=== PATIENT | male | born 1965 | race Asian ===

== ENCOUNTER 2019-11-16 04:05 | Emergency (ER) | payer MEDICARE ==
[~2019-11-16] VITALS: Ht 152.4 cm; Wt 69.8 kg
--- NOTE | 2019-11-16 06:10 | PHYS DOC ---
Past Medical History Past Medical History: No Pertinent History Past Surgical History: Appendectomy Smoking Status: Never Smoker Alcohol Use: Occasionally Adult General Chief Complaint Chief Complaint: BLOODY STOOL HPI HPI 54-year-old male who presents for evaluation of diffuse abdominal pain, worsening over the last 1.5 weeks. Associated with loose bowel movements, as well as melenic stools. Prior appendectomy, but no other abdominal surgeries. His only home medication is Aleve for joint pain; denying overuse of medication. No aggravating or alleviating factors. No hematochezia. Review of Systems Review of Systems General: No fevers, chills. Eyes: No blurred vision, diplopia. ENT: No nasal congestion, sore throat. CV: No chest pain, edema. Resp: No shortness of breath, cough. GI: No nausea, vomiting, hematochezia. Reports abdominal pain, melena. : No dysuria, hematuria. Neuro: No headache, dizziness, weakness. MSK: No myalgia, arthralgia, back pain. Skin: No acute rash, lesion. All other systems were reviewed and found to be within normal limits, except as documented in this note. Current Medications Current Medications Current Medications Medications (Trade) Dose Ordered Sig/Kristal Start Time Stop Time Status Last Admin Dose Admin Iohexol (Omnipaque 300 Mg/ml) 75 ml 1X ONCE 11/16/19 07:00 11/16/19 07:04 DC 11/16/19 07:00 75 ML Pantoprazole Sodium (PROTONIX VIAL for IV PUSH) 80 mg 1X ONCE 11/16/19 06:30 11/16/19 06:31 DC 11/16/19 06:44 80 MG Allergies Allergies Allergies Coded Allergies Type Severity Reaction Last Updated Verified No Known Drug Allergies 11/16/19 No Physical Exam Physical Exam Gen: NAD. Head: NC/AT Eyes: No scleral icterus. No conjunctival injection. ENT: MMM. Posterior OP clear. Neck: Supple. NT. CV: RRR. Peripheral pulses intact. Resp: CTAB. Abd: Soft. Mild diffuse distention. Minimal diffuse tenderness. No rebound, guarding, rigidity. No flank percussion tenderness. MSK: No peripheral cyanosis. No edema. Neuro: Awake & alert. Skin: Warm. Dry. Psych: Appropriate mood & affect. Current Patient Data Vital Signs Vital Signs Date Time Temp Pulse Resp B/P (MAP) Pulse Ox O2 Delivery O2 Flow Rate FiO2 11/16/19 04:36 97.9 82 16 135/96 (109) 94 Room Air 97.9 Lab Values Laboratory Tests Test 11/16/19 05:50 White Blood Count 5.5 x10^3/uL (4.0-11.0) Red Blood Count 5.09 x10^6/uL (4.30-5.70) Hemoglobin 14.7 g/dL (13.0-17.5) Hematocrit 44.4 % (39.0-53.0) Mean Corpuscular Volume 87 fL (79-100) Mean Corpuscular Hemoglobin 29 pg (25-35) Mean Corpuscular Hemoglobin Concent 33 g/dL (31-37) Red Cell Distribution Width 12.6 % (11.5-14.5) Platelet Count 196 x10^3/uL (140-400) Neutrophils (%) (Auto) 59 % (31-73) Lymphocytes (%) (Auto) 28 % (24-48) Monocytes (%) (Auto) 12 % (0-9) H Eosinophils (%) (Auto) 1 % (0-3) Basophils (%) (Auto) 0 % (0-3) Neutrophils # (Auto) 3.3 x10^3/uL (1.8-7.7) Lymphocytes # (Auto) 1.5 x10^3/uL (1.0-4.8) Monocytes # (Auto) 0.7 x10^3/uL (0.0-1.1) Eosinophils # (Auto) 0.1 x10^3/uL (0.0-0.7) Basophils # (Auto) 0.0 x10^3/uL (0.0-0.2) Prothrombin Time 12.3 SEC (11.7-14.0) Prothrombin Time INR 1.0 (0.8-1.1) Activated Partial Thromboplast Time 34 SEC (24-38) Sodium Level 142 mmol/L (136-145) Potassium Level 4.0 mmol/L (3.5-5.1) Chloride Level 104 mmol/L (98-107) Carbon Dioxide Level 25 mmol/L (21-32) Anion Gap 13 (6-14) Blood Urea Nitrogen 12 mg/dL (8-26) Creatinine 0.7 mg/dL (0.7-1.3) Estimated GFR (Cockcroft-Gault) 118.0 BUN/Creatinine Ratio 17 (6-20) Glucose Level 127 mg/dL (70-99) H Calcium Level 9.4 mg/dL (8.5-10.1) Magnesium Level 2.2 mg/dL (1.8-2.4) Total Bilirubin 1.7 mg/dL (0.2-1.0) H Aspartate Amino Transferase (AST) 31 U/L (15-37) Alanine Aminotransferase (ALT) 62 U/L (16-63) Alkaline Phosphatase 100 U/L (46-116) Total Protein 7.4 g/dL (6.4-8.2) Albumin 4.0 g/dL (3.4-5.0) Albumin/Globulin Ratio 1.2 (1.0-1.7) Lipase 87 U/L (73-393) Laboratory Tests 11/16/19 05:50 Laboratory Tests 11/16/19 05:50 EKG EKG [] Radiology/Procedures Radiology/Procedures [] Course & Med Decision Making Course & Med Decision Making Pertinent Labs and Imaging studies reviewed. (See chart for details) In summary, 54-year-old male on no anticoagulation, who presents for evaluation of some diffuse abdominal pain over the last couple weeks or so, as well as some dark-colored stool. Hemodynamically stable. Labwork is otherwise unrevealing including normal hemoglobin and BUN/creatinine ratio. CT abdomen/pelvis fails to reveal any acute process. Received empiric Protonix bolus. He otherwise remains well-appearing and nontoxic. No emergent pathology was identified. Possibility of gastritis. We discharged home with outpatient PMD follow-up. Rx for protonix and zofran. Return precautions given. Dragon Disclaimer Dragon Disclaimer This electronic medical record was generated, in whole or in part, using a voice recognition dictation system. Departure Departure Impression: Primary Impression: Abdominal pain Additional Impression: Melena Disposition: HOME, SELF-CARE Referrals: NO PCP (PCP) Scripts Ondansetron Hcl (ZOFRAN) 4 Mg Tablet 1 TAB PO PRN Q6-8HRS for nausea, #12 TAB Prov: LE,NATHAN H DO 11/16/19 Pantoprazole Sodium (PROTONIX ) 40 Mg Tablet.dr 40 MG PO DAILYAC for GERD for 30 Days, #30 TAB Prov: NATHAN MCDONALD DO 11/16/19 Problem Qualifiers Primary Impression: Abdominal pain Abdominal location: epigastric Qualified Codes: R10.13 - Epigastric pain NATHAN MCDONALD DO Nov 16, 2019 06:10
[2019-11-16] MEDS ORDERED: PANTOPRAZOLE IV PUSH 40 MG VIAL. IVP ONE (06:30)
[2019-11-16 06:32] LABS: BASO % 0 % (0-3); EOS # 0.1 x10^3/uL (0.0-0.7); EOS % 1 % (0-3); HEMATOCRIT 44.4 % (39.0-53.0); HEMOGLOBIN 14.7 g/dL (13.0-17.5); LYMPH # 1.5 x10^3/uL (1.0-4.8); LYMPH % 28 % (24-48); MEAN CORPUSCULAR HEMOGLOBIN 29 pg (25-35); MEAN CORPUSCULAR HGB CONC 33 g/dL (31-37); MEAN CORPUSCULAR VOLUME 87 fL (79-100); MONO # 0.7 x10^3/uL (0.0-1.1); MONO % 12 % (0-9); NEUT # 3.3 x10^3/uL (1.8-7.7); NEUT % 59 % (31-73); PLATELET COUNT 196 x10^3/uL (140-400); RED BLOOD COUNT 5.09 x10^6/uL (4.30-5.70); RED CELL DISTRIBUTION WIDTH 12.6 % (11.5-14.5); WHITE BLOOD COUNT 5.5 x10^3/uL (4.0-11.0)
[2019-11-16 06:44] LABS: PROTHROMBIN TIME PATIENT 12.3 SEC (11.7-14.0)
[2019-11-16 06:52] LABS: CALCIUM 9.4 mg/dL (8.5-10.1); CREATININE 0.7 mg/dL (0.7-1.3)
[2019-11-16 06:57] LABS: ALBUMIN/GLOBULIN RATIO 1.2 (1.0-1.7); MAGNESIUM 2.2 mg/dL (1.8-2.4); TOTAL BILIRUBIN 1.7 mg/dL (0.2-1.0); TOTAL PROTEIN 7.4 g/dL (6.4-8.2)
[2019-11-16] MEDS ORDERED: IOHEXOL 300 MG/ML 100ML VIAL. IV ONE (07:00)
--- NOTE | 2019-11-16 07:47 | RAD ---
CT abdomen and pelvis with contrast PQRS statement: CT scans at this facility use dose reduction including either automated exposure control, iterative reconstructions, and /or weight based radiation dosing via mA and kV modification when appropriate to reduce radiation dose to as low as reasonably achievable. HISTORY: Diffuse abdominal pain and hematochezia Contrast: 75 mL Omnipaque 300 intravenous contrast. Abdomen findings: Liver, gallbladder, spleen, pancreas, adrenal glands and kidneys are unremarkable. Subcentimeter hypodensity right renal midpole cortex too small to characterize due to volume averaging statistically most likely small cyst. Appendectomy. No obstruction or inflammatory changes in GI tract. No abdominal fluid or adenopathy. Calcified plaque abdominal aorta. Lung bases and bones are unremarkable. Pelvis findings: Bladder, prostate, rectum and bones are unremarkable. IMPRESSION: No acute process. The appendix is negative. Electronically signed by: Shar Caceres MD (11/16/2019 7:44 AM) [id number]
[2019-11-16] MEDS ORDERED: PANT40TA77 PO (07:53)
[2019-11-16] MEDS ORDERED: ONDA4TAB7 PO (07:53)
[2019-11-16 08:30] VITALS: BP 109/66
[2019-11-16] MEDS ORDERED: IOHEXOL 300 MG/ML 100ML VIAL. ONE (11:42)
== END 2019-11-16 08:42 | disposition home or self-care (01) ==
LOC: ER 04:05
DX: R10.13 Epigastric pain (principal); K92.1 Melena; R10.84 Generalized abdominal pain; Z90.89 Acquired absence of other organs
CPT/HCPCS: 36415; 74177; 80053; 83690; 83735; 85025; 85610; 85730; 86850; 86900; 86901; 96374; 99285; C9113; Q9967

== ENCOUNTER 2021-02-23 09:24 | Emergency (ER) | payer MEDICARE ==
[~2021-02-23] VITALS: Ht 152.4 cm; Wt 70.1 kg
[~2021-02-23 09:24] MED LIST: ONDA4TAB7 PO; PANT40TA77 PO
[2021-02-23] MEDS ORDERED: hydrOXYzine 25 MG TABLET PO STA (11:10)
[2021-02-23] MEDS ORDERED: FAMOTIDINE 20 MG TABLET. PO ONE (11:15)
[2021-02-23] MEDS ORDERED: predniSONE 20 MG TABLET PO ONE (11:15)
[2021-02-23] MEDS ORDERED: FAMO20TA5 PO (11:30)
[2021-02-23] MEDS ORDERED: TRIA80OI TP (11:30)
[2021-02-23] MEDS ORDERED: HYDR25TA PO (11:30)
[2021-02-23] MEDS ORDERED: PRED-220 PO (11:30)
--- NOTE | 2021-02-23 11:31 | PHYS DOC ---
Past Medical History Past Medical History: No Pertinent History Past Surgical History: No Surgical History, Appendectomy Smoking Status: Never Smoker Alcohol Use: None General Adult EDM: Chief Complaint: ITCHING HPI: HPI: Patient is a 55 year old man with no significant medical history presenting to the ED today complaining of a rash that began yesterday. Patient states the rash is pruritic. Patient states he was out doing yard work the day before yesterday. Denies any fever. Denies any difficulty breathing, throat or tongue swelling. Daughter interpreted for her [place] per patient request Review of Systems: Review of Systems: Constitutional: Denies fever or chills. [] GI: Denies abdominal pain, nausea, vomiting, bloody stools or diarrhea. [] : Denies dysuria. [] Musculoskeletal: Denies back pain or joint pain. [] Integument: reports rash Neurologic: Denies headache, focal weakness or sensory changes. [] Psychiatric: Denies depression or anxiety. [] Heart Score: C/O Chest Pain: N/A Risk Factors: Risk Factors: DM, Current or recent (<one month) smoker, HTN, HLP, family history of CAD, obesity. Risk Scores: Score 0 - 3: 2.5% MACE over next 6 weeks - Discharge Home Score 4 - 6: 20.3% MACE over next 6 weeks - Admit for Clinical Observation Score 7 - 10: 72.7% MACE over next 6 weeks - Early Invasive Strategies Current Medications: Current Medications Medications (Trade) Dose Ordered Sig/Kristal Start Time Stop Time Status Last Admin Dose Admin Famotidine (Pepcid) 20 mg 1X ONCE 02/23/21 11:15 02/23/21 11:16 DC Hydroxyzine HCl (Atarax) 25 mg 1X STAT 02/23/21 11:10 02/23/21 11:14 DC Prednisone (Prednisone) 60 mg 1X ONCE 02/23/21 11:15 02/23/21 11:16 DC Allergies: Allergies: Allergies Coded Allergies Type Severity Reaction Last Updated Verified No Known Drug Allergies 02/23/21 No Physical Exam: PE: Constitutional: Well developed, well nourished, no acute distress, non-toxic appearance. [] Skin: Mild erythematous rash on patient's abdomen, upper chest, back, bilateral thighs. Back: No tenderness, no CVA tenderness. [] Extremities: No tenderness, no cyanosis, no clubbing, ROM intact, no edema. [] Neurologic: Alert and oriented X 3, normal motor function, normal sensory function, no focal deficits noted. [] Psychologic: Affect normal, judgement normal, mood normal. [] Current Patient Data: Vital Signs: Vital Signs Date Time Temp Pulse Resp B/P (MAP) Pulse Ox O2 Delivery O2 Flow Rate FiO2 02/23/21 09:50 98.9 83 16 150/95 (113) 97 Room Air 98.9 EKG: EKG: [] Radiology/Procedures: Radiology/Procedures: [] Course & Med Decision Making: Course & Med Decision Making Pertinent Labs and Imaging studies reviewed. (See chart for details) This is a 55-year-old male patient presented to the ED today with a rash on the abdomen, upper back, chest, bilateral thighs, rash began yesterday. He reports being outside doing yard work day before yesterday. Discharged home, follow-up with PCP. Prescriptions provided Bina Disclaimer: Bina Disclaimer: This electronic medical record was generated, in whole or in part, using a voice recognition dictation system. Departure Departure Impression: Primary Impression: Rash Disposition: HOME / SELF CARE / HOMELESS Condition: STABLE Referrals: NO PCP (PCP) follow up with your doctor in 1-2 weeks Patient Instructions: Rash Additional Instructions: You have a rash, use the prescribed medications as ordered. Follow-up with your doctor in 1 to 2 weeks Scripts Triamcinolone Acetonide (TRIAMCINOLONE ACETONIDE) 80 Gm Oint...g. 1 JAMES TP BID, #30 GM 1 Refill Prov: SAURABH MODI OFFICE CLERK 02/23/21 Hydroxyzine Hcl (HYDROXYZINE HCL) 25 Mg Tablet 1 TAB PO TID, #90 TAB 2 Refills Prov: SAURABH MODI OFFICE CLERK 02/23/21 Famotidine (FAMOTIDINE) 20 Mg Tablet 20 MG PO DAILY, #7 TAB Prov: SAURABH MODI OFFICE CLERK 02/23/21 Prednisone (PREDNISONE ) 10 Mg Tablet 10 MG PO UD for PREDNISONE TAPER, #39 TAB 0 Refills Take 3 tablets by mouth twice a day for 3 days, then take 2 tablets by mouth twice a day for 3 days, then take 1 tablet by mouth twice a day for 3 days, then take 1 tablet by mouth daily x 3 days, then stop. Prov: SAURABH MODI APRN 02/23/21 SAURABH MODI APRN Feb 23, 2021 11:31
[2021-02-23 11:47] VITALS: BP 136/95
== END 2021-02-23 11:45 | disposition home or self-care (01) ==
LOC: ER 09:24
DX: R21 Rash and other nonspecific skin eruption (principal); L29.8 Other pruritus
CPT/HCPCS: 99284; J7512

== ENCOUNTER 2021-10-17 22:07 | Emergency (ER) | payer MEDICARE ==
[~2021-10-17] VITALS: Ht 152.4 cm; Wt 70.0 kg
[~2021-10-17 22:07] MED LIST changes: +FAMO20TA5 PO; +HYDR25TA PO; +PRED-220 PO; +TRIA80OI TP
[2021-10-18 00:36] LABS: BILIRUBIN,URINE SMALL (NEG); CLARITY,URINE TURBID; COLOR,URINE ORANGE; PROTEIN,URINE 100 mg/dL (NEG-TRACE)
[2021-10-18 00:53] LABS: BACTERIA,URINE 0 /HPF (0-FEW); NITRITE,URINE NEGATIVE (NEG); RBC,URINE OCC /HPF (0-2); WBC,URINE OCC /HPF (0-4)
[2021-10-18] MEDS ORDERED: ONDANSETRON PF 4 MG/2 ML VIAL. IVP ONE (01:30)
[2021-10-18] MEDS ORDERED: IV NORMAL SALINE 1000ML BAG 1,000 ML IV ONE ×2 (01:30)
[2021-10-18] MEDS ORDERED: FAMOTIDINE 20 MG/2 ML VIAL IVP ONE (01:30)
--- NOTE | 2021-10-18 02:41 | PHYS DOC ---
Past Medical History Past Medical History: No Pertinent History Additional Past Medical Histor: PREDIABITES Past Surgical History: Appendectomy Smoking Status: Never Smoker Alcohol Use: None General Adult EDM: Chief Complaint: ABDOMINAL PAIN HPI: HPI: 56-year-old male with no significant past medical history presents the ED with his daughter who is translating (speaks Hmong, declines general ledger bookkeeper services), presents to the ed with c/o multiple episodes of vomiting and diarrhea that started this afternoon with associated left-sided upper and lower abdominal pain and subjective fever and chills. Was at a family get together last evening and did drink alcohol but was only "tipsy." No other family members are sick. Patient takes no routine medications. Review of Systems: Review of Systems: Constitutional: Denies fever or chills. [] Eyes: Denies change in visual acuity. [] HENT: Denies nasal congestion or sore throat. [] Respiratory: Denies cough or shortness of breath. [] Cardiovascular: Denies chest pain or edema. [] GI: Denies hematochezia, bloody stools or diarrhea. [] Musculoskeletal: Denies back pain or joint pain. [] Integument: Denies rash or diaphoresis Neurologic: Denies headache, focal weakness or sensory changes. [] Endocrine: Denies polyuria or polydipsia. [] Lymphatic: Denies swollen glands. [] Psychiatric: Denies depression or anxiety. [] Heart Score: C/O Chest Pain: No Risk Factors: Risk Factors: DM, Current or recent (<one month) smoker, HTN, HLP, family history of CAD, obesity. Risk Scores: Score 0 - 3: 2.5% MACE over next 6 weeks - Discharge Home Score 4 - 6: 20.3% MACE over next 6 weeks - Admit for Clinical Observation Score 7 - 10: 72.7% MACE over next 6 weeks - Early Invasive Strategies Current Medications: Current Medications Medications (Trade) Dose Ordered Sig/Kristal Start Time Stop Time Status Last Admin Dose Admin Famotidine (Pepcid Vial) 20 mg 1X ONCE 10/18/21 01:30 10/18/21 01:32 DC Ondansetron HCl (Zofran) 4 mg 1X ONCE 10/18/21 01:30 10/18/21 01:32 DC Sodium Chloride 1,000 ml @ 1,000 mls/hr 1X ONCE 10/18/21 01:30 10/18/21 02:29 DC Allergies: Allergies: Allergies Coded Allergies Type Severity Reaction Last Updated Verified No Known Drug Allergies 10/17/21 No Physical Exam: PE: Constitutional: no acute distress, non-toxic appearance. HENT: Normocephalic, atraumatic, very dry mucous membranes Eyes: EOMI, conjunctiva normal, no discharge. Neck: Normal range of motion, supple, Cardiovascular: S1/2 present, tachycardic Lungs & Thorax: Speaking in full sentences, bilateral equal chest rise, no tachypnea or increased work of breathing Abdomen: soft, reports tenderness in left lower quadrant left upper quadrant and epigastric region, no McBurney's point tenderness, no Yuan sign, no rigidity or guarding, no distention Skin: Warm, dry, no erythema, no rash. [] Extremities: No tenderness, no cyanosis, no lower extremity edema Neurologic: Alert and oriented X 3, normal motor function, normal sensory function, no focal deficits noted. [] Psychologic: Affect normal, judgement normal, mood normal. [] Current Patient Data: Labs: Laboratory Tests Test 10/18/21 00:01 Urine Collection Type Unknown Urine Color Scurry Urine Clarity Turbid Urine pH 6.0 (<5.0-8.0) Urine Specific Gwynn >=1.030 (1.000-1.030) Urine Protein 100 mg/dL (NEG-TRACE) Urine Glucose (UA) 100 mg/dL (NEG) Urine Ketones (Stick) 15 mg/dL (NEG) Urine Blood Negative (NEG) Urine Nitrite Negative (NEG) Urine Bilirubin Small (NEG) Urine Urobilinogen Dipstick 1.0 mg/dL (0.2 mg/dL) Urine Leukocyte Esterase Small (NEG) Urine RBC Occ /HPF (0-2) Urine WBC Occ /HPF (0-4) Urine Squamous Epithelial Cells Few /LPF Urine Bacteria 0 /HPF (0-FEW) Urine Mucus Mod /LPF Vital Signs: Vital Signs Date Time Temp Pulse Resp B/P (MAP) Pulse Ox O2 Delivery O2 Flow Rate FiO2 10/18/21 00:54 107 16 130/79 (96) 98 Room Air 10/17/21 22:35 98.3 98.3 EKG: EKG: States admitted for beats per minute, no axis deviation, Q waves lead III, normal intervals, no T wave inversion, no ST elevation or ST depression, patient with no active chest pain pressure Radiology/Procedures: Radiology/Procedures: IMAGING REPORT Signed PATIENT: CLAIRE GAYLE ACCOUNT: [id number] : 1965 LOCATION: ER AGE: 56 SEX: M EXAM STATUS: REG ER ORD. PHYSICIAN: MARY ELLEN HOBBS DO REASON: left sided abd pain;OMNI 300, 75ML PROCEDURE: CT ABD PELV W/ IV CONTRST ONLY PQRS Compliance Statement: One or more of the following individualized dose reduction techniques were utilized for this examination: 1. Automated exposure control 2. Adjustment of the mA and/or kV according to patient size 3. Use of iterative reconstruction technique CT abdomen/pelvis with contrast 10/18/2021 3:24 AM INDICATION: Left-sided abdominal pain COMPARISON: None available TECHNIQUE: Multiple axial CT images of the abdomen and pelvis were obtained after the intravenous administration of 75 mL Omnipaque 300. Coronal and sagittal reformats are provided. FINDINGS: Respiratory motion limits evaluation of the lung bases. Heart size is within normal limits. Liver, spleen, adrenal glands, pancreas and gallbladder are normal in appearance. The abdominal aorta is normal in course and caliber. There are no pathologically enlarged lymph nodes in the abdomen and pelvis. There is no abdominal free fluid. There is no free intraperitoneal air. Small and large bowel are normal in caliber. Mild mucosal enhancement involving fluid-filled bowel loops in left upper quadrant. Consideration may be given for enteritis infectious/inflammatory etiology. There is no evidence for bowel obstruction. There are no pericolonic inflammatory changes. Appendix is absent. The kidneys enhance symmetrically. There is no suspicious renal mass. There is no hydronephrosis. There are no suspected calculi within the kidneys, ureters or urinary bladder. 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 No suspicious osseous abnormality. IMPRESSION: Mild mucosal enhancement involving fluid-filled bowel loops in left upper quadrant. Consideration may be given for enteritis infectious/inflammatory etiology. Electronically signed by: Merlin Urbano MD (10/18/2021 3:51 AM) [facility] DICTATED and SIGNED BY: MERLIN URBANO MD DATE: 10/18/21 [id number] 0 Course & Med Decision Making: Course & Med Decision Making Pertinent Labs and Imaging studies reviewed. (See chart for details) Enteritis with mild nonspecific leukocytosis. Patient with borderline potassium, oral replacement given emergency department. Bilirubin is also elevated-patient with no right upper quadrant pain. Suspect viral process versus food poisoning. On reevaluation patient tolerates oral intake and pain has improved-abdomen has remained soft, nonrigid with no guarding. Patient's tachycardia has resolved with IV fluids. Patient is hemodynamically stable. Daughter was informed that patient's glucose was elevated and would benefit from a primary care physician/HgA1c check. Will prescribe Zofran ODT and recommend supportive care with analgesia, rest and liquid diet with advancement to solids via brat diet. Will discharge home with strict ED return precautions were given for severe pain, bloody vomiting or diarrhea, fever, intractable vomiting or diarrhea or dehydration. Encouraged urgent outpatient follow-up with PMD for reevaluation and routine care. Life-threatening processes were considered but are low suspicion at this time, given history, physical exam and ED workup. Pt was educated on all prescription medications and adverse effects. All patient's questions were answered and pt was stable at time of discharge. Life/limb-threatening differential includes but is not limited to, acute coronary syndrome/myocardial infarction, Boerhaave's, DKA, gastrointestinal bleeding, intracranial hemorrhage, ischemic bowel, meningitis, sepsis, surgical abdomen (AAA), toxidrome (drug over/overdose/carbon monoxide, etc), ovarian/testicular torsion, trauma, or infection/sepsis. I have spoken with the patient and/or caregivers. I explained the patient's condition, diagnoses and treatment plan based on the information available to me at this time. I have answered the patient and/or caregiver's questions and addressed any concerns. The patient and/or caregivers have a good understanding of patient's diagnosis, condition and treatment plan as can be expected at this point. Vital signs have been stable. Patient's condition is stable and appropriate for discharge from the emergency department. Patient will pursue further outpatient evaluation with primary care physician or other designated or consulting physician as outlined in the discharge instructions. The patient and/or caregivers are agreeable to this plan of care and follow-up instructions have been explained in detail. The patient and/or caregivers have received these instructions in written form and have expressed an understanding of the discharge instructions. The patient and/or caregivers are aware that any significant change of condition or worsening of symptoms should prompt immediate return to this or the closest emergency department or call to [id number] Curran Disclaimer: Bina Disclaimer: This electronic medical record was generated, in whole or in part, using a voice recognition dictation system. Departure Departure Impression: Primary Impression: Enteritis Additional Impression: Vomiting and diarrhea Disposition: HOME / SELF CARE / HOMELESS Condition: STABLE Referrals: NO PCP (PCP) Follow-up with your primary care physician for re-evaluation (needs HgA1c) OR FOLLOW UP WITH FAMILY MEDICINE: [address], [address] [place] [address] Patient Instructions: Diarrhea, Nausea and Vomiting, Viral Gastroenteritis Additional Instructions: EMERGENCY DEPARTMENT GENERAL DISCHARGE INSTRUCTIONS Thank you for coming to [facility] Emergency Department (ED) today and trusting us with you care. We trust that you had a positive experience in our Emergency Department. If you wish to speak to the department management, you may call the Director at [phone]. YOUR FOLLOW UP INSTRUCTIONS ARE FOLLOWS: 1. Do you have a private Doctor? If you do not have a private doctor, please ask for a resource list of physicians or clinics that may be able to assist you with follow up care. 2. The Emergency Physicain has interpreted your x-rays. The X-Ray specialist will also review them. If there is a change in the findings, you will be notified in 48 hours when at all possible. 3. A lab test or culture has been done, your results will be reviewed and you will be notified if you need a change in treatment. ADDITIONAL INSTRUCTIONS AND INFORMATION: 1. Your care today has been supervised by a physician who is specially trained in emergency care. Many problems require more than one evaluation for a complete diagnosis and treatment. We recommend that you schedule your follow up appointment as recommended to ensure complete treatment of you illness or injury. If you are unable to obtain follow up care and continue to have a problem, or if your condition worsens, we recommend that you return to the ED. 2. We are not able to safely determine your condition over the phone nor are we able to give sound medical advice over the phone. For these safety reasons, if you call for medical advice we will ask you to come to the ED for further evaluation. 3. If you have any questions regarding these discharge instructions please call the ED at [phone]. SAFETY INFORMATION: In the interest of safety, wellness, and injury prevention; we encourage you to wear your sealbelt, if you smoke; quite smoking, and we encourage family to use a protective helmet for bicycling and other sporting events that present an increased risk for head injury. IF YOUR SYMPTOMS WORSEN OR NEW SYMPTOMS DEVELOP, OR YOU HAVE CONCERNS ABOUT YOUR CONDITION; OR IF YOUR CONDITION WORSENS WHILE YOU ARE WAITING FOR YOUR FOLLOW UP APPOINTMENT; EITHER CONTACT YOUR PRIMARY CARE DOCTOR, THE PHYSICIAN WHOSE NAME AND NUMBER YOU WERE GIVEN, OR RETURN TO THE ED IMMEDIATELY. Scripts Ondansetron (ONDANSETRON ODT) 4 Mg Tab.rapdis 1 TAB PO PRN Q6-8HRS, #20 TAB Prov: MARY ELLEN HOBBS DO 10/18/21 MARY ELLEN HOBBS DO Oct 18, 2021 02:41
[2021-10-18 02:50] LABS: BASO % 0 % (0-3); EOS % 0 % (0-3); HEMATOCRIT 44.2 % (39.0-53.0); HEMOGLOBIN 14.4 g/dL (13.0-17.5); LYMPH # 0.5 x10^3/uL (1.0-4.8); LYMPH % 4 % (24-48); MEAN CORPUSCULAR HEMOGLOBIN 28 pg (25-35); MEAN CORPUSCULAR HGB CONC 33 g/dL (31-37); MEAN CORPUSCULAR VOLUME 85 fL (79-100); MONO # 1.1 x10^3/uL (0.0-1.1); MONO % 8 % (0-9); NEUT # 11.4 x10^3/uL (1.8-7.7); NEUT % 88 % (31-73); PLATELET COUNT 223 x10^3/uL (140-400); RED BLOOD COUNT 5.23 x10^6/uL (4.30-5.70); RED CELL DISTRIBUTION WIDTH 12.2 % (11.5-14.5); WHITE BLOOD COUNT 13.1 x10^3/uL (4.0-11.0)
[2021-10-18] MEDS ORDERED: IOHEXOL 300 MG/ML 100ML VIAL. IV ONE (03:00)
[2021-10-18 03:15] LABS: CALCIUM 8.9 mg/dL (8.5-10.1); CREATININE 0.8 mg/dL (0.7-1.3); GFR 100.4; POTASSIUM 3.4 mmol/L (3.5-5.1)
[2021-10-18] MEDS ORDERED: CONTRAST GIVEN. MC PRN (03:15)
[2021-10-18 03:21] LABS: ALBUMIN 3.9 g/dL (3.4-5.0); DIRECT BILIRUBIN 0.8 mg/dL (0.0-0.2); MAGNESIUM 2.4 mg/dL (1.8-2.4); TOTAL BILIRUBIN 2.6 mg/dL (0.2-1.0); TOTAL PROTEIN 8.2 g/dL (6.4-8.2)
--- NOTE | 2021-10-18 03:53 | RAD ---
PQRS Compliance Statement: One or more of the following individualized dose reduction techniques were utilized for this examinat ion: 1. Automated exposure control 2. Adjustment of the mA and/or kV according to patient size 3. Use of iterative reconstruction technique CT abdomen/pelvis with contrast 10/18/2021 3:24 AM INDICATION: Left-sided abdominal pain COMPARISON: None available TECHNIQUE: Multiple axial CT images of the abdomen and pelvis were obtained after the intravenous adm inistration of 75 mL Omnipaque 300. Coronal and sagittal reformats are provided. FINDINGS: Respiratory motion limits evaluation of the lung bases. Heart size is within normal limits. Liver, spleen, adrenal glands, pancreas and gallbladder are normal in appearance. The abdominal aorta is normal in course and caliber. There are no pathologically enlarged lymph nodes in the abdomen and pelvis. There is no abdominal free fluid. There is no free intraperitoneal air. Small and large bowel are normal in caliber. Mild mucosal enhancement involving fluid-filled bowel lo ops in left upper quadrant. Consideration may be given for enteritis infectious/inflammatory etiology . There is no evidence for bowel obstruction. There are no pericolonic inflammatory changes. Appendix is absent. The kidneys enhance symmetrically. There is no suspicious renal mass. There is no hydronephrosis. The re are no suspected calculi within the kidneys, ureters or urinary bladder. 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 No suspicious osseous abnormality. IMPRESSION: Mild mucosal enhancement involving fluid-filled bowel loops in left upper quadrant. Consideration may be given for enteritis infectious/inflammatory etiology. Electronically signed by: Lori Rolle MD (10/18/2021 3:51 AM) [facility]
[2021-10-18] MEDS ORDERED: ONDA4TAB12 PO (04:11)
[2021-10-18] MEDS ORDERED: POTASSIUM CHLORIDE 20 MEQ TABLET.ER. PO ONE (04:15)
[2021-10-18] MEDS ORDERED: KETOROLAC 15 MG/ML VIAL. IVP ONE (04:15)
[2021-10-18 04:51] VITALS: BP 112/69
--- NOTE | 2021-10-18 05:00 | EKG ---
[facility] [address] [place] [address] Test Date: 2021-10-18 Test Time: 02:42:38 Pat Name: CLAIRE GAYLE Department: Room: Gender: M [employer]: : 1965 Requested By: MARY ELLEN HOBBS Order Number: [id number] Reading MD: Measurements Intervals [place] Rate: 94 P: 24 AK: 150 QRS: 23 QRSD: 94 T: 32 QT: 304 QTc: 385 Interpretive Statements SINUS RHYTHM NORMAL ECG RI6.02 No previous ECG available for comparison
== END 2021-10-18 05:25 | disposition home or self-care (01) ==
LOC: ER 22:07
DX: K52.9 Noninfective gastroenteritis and colitis, unspecified (principal); R11.10 Vomiting, unspecified; Z90.89 Acquired absence of other organs
CPT/HCPCS: 36415; 74177; 80048; 80076; 81001; 83605; 83690; 83735; 84484; 85025; 87040; 93005; 96361; 96374; 96375; 99285; G0480; J1885; J2405; J3490; J7030; Q9967